=== PATIENT | male | born 1945 | race Two or more races ===

== ENCOUNTER → 2018-04-08 | Emergency (ER) | payer OTHER ==
[~2018-04-08] VITALS: Ht 185.4 cm; Wt 86.2 kg
[~2018-04-08] MED LIST: COZAAR50 MG; KEPPRA500 MG; NORVASC2.5 MG; TOPROL XL50 MG
== END | disposition designated cancer center or children's hospital (05) ==
LOC: ER 14:58
DX: G45.8 Other transient cerebral ischemic attacks and related syndromes (principal); I10 Essential (primary) hypertension

== ENCOUNTER 2019-04-21 13:20 | Outpatient (CLI) | payer OTHER | END 2019-04-21 13:31 | disposition home or self-care (01) | LOC: RAD 13:20 | DX: S62.521A Displaced fracture of distal phalanx of right thumb, initial encounter for closed fracture (principal) ==

== ENCOUNTER → 2021-07-31 12:30 | Outpatient (CLI) | payer OTHER | END | disposition home or self-care (01) | LOC: LAB 12:30 | PROVIDERS: ATTEND Radiology Diagnostic Radiology | DX: K74.60 Unspecified cirrhosis of liver (principal) ==

== ENCOUNTER 2021-08-01 09:10 | Outpatient (CLI) | payer OTHER | END 2021-08-01 09:22 | disposition home or self-care (01) | LOC: TOM 09:10 | PROVIDERS: ATTEND Specialist | DX: C72.0 Malignant neoplasm of spinal cord (principal); K74.60 Unspecified cirrhosis of liver | CPT/HCPCS: 74177; Q9965 ==

== ENCOUNTER 2022-08-04 12:10 | Outpatient (CLI) | payer OTHER ==
[2022-08-04] MEDS ORDERED: XARELTO20 M1 PO (21:13)
== END 2022-08-04 12:17 | disposition home or self-care (01) ==
LOC: RAD 12:10
DX: R07.9 Chest pain, unspecified (principal); S83.91XA Sprain of unspecified site of right knee, initial encounter

== ENCOUNTER 2022-08-04 20:47 | Emergency (ER) | payer OTHER ==
[~2022-08-04] VITALS: Ht 185.4 cm; Wt 86.2 kg
[2022-08-04] MEDS ORDERED: XARELTO20 M1 PO (21:13)
== END 2022-08-05 01:20 | disposition home or self-care (01) ==
LOC: ER 20:47
DX: S27.898A Other injury of other specified intrathoracic organs, initial encounter (principal); S22.43XA Multiple fractures of ribs, bilateral, initial encounter for closed fracture; W18.39XA Other fall on same level, initial encounter; Y93.89 Activity, other specified; Y92.091 Bathroom in other non-institutional residence as the place of occurrence of the external cause; Y99.8 Other external cause status; M79.601 Pain in right arm

== ENCOUNTER 2022-08-05 10:24 | Outpatient (CLI) | payer OTHER ==
[~2022-08-05 10:24] MED LIST changes: +XARELTO20 M1 PO
== END 2022-08-05 10:26 | disposition home or self-care (01) ==
LOC: SONOGRAMA 10:24
DX: S40.021A Contusion of right upper arm, initial encounter (principal)

== ENCOUNTER 2022-10-21 11:04 | Outpatient (CLI) | payer OTHER | END 2022-10-21 11:08 | disposition home or self-care (01) | LOC: RAD 11:04 | PROVIDERS: ATTEND Pediatrics | DX: S62.657A Nondisplaced fracture of middle phalanx of left little finger, initial encounter for closed fracture (principal) ==

== ENCOUNTER 2023-11-15 09:48 | Outpatient (CLI) | payer OTHER | END 2023-11-15 09:57 | disposition home or self-care (01) | LOC: SONOGRAMA 09:48 | PROVIDERS: ATTEND Pediatrics | DX: R31.9 Hematuria, unspecified (principal); R10.13 Epigastric pain ==

== ENCOUNTER 2023-12-13 10:54 | Outpatient (CLI) | payer OTHER | END 2023-12-13 10:59 | disposition home or self-care (01) | LOC: RAD 10:54 | PROVIDERS: ATTEND Ophthalmology | DX: R07.89 Other chest pain (principal) ==

== ENCOUNTER 2024-02-07 11:38 | Outpatient (CLI) | payer OTHER | END 2024-02-07 11:45 | disposition home or self-care (01) | LOC: SONOGRAMA 11:38 | PROVIDERS: ATTEND Urology | DX: N40.0 Benign prostatic hyperplasia without lower urinary tract symptoms (principal) ==

== ENCOUNTER 2024-12-08 09:56 | Outpatient (CLI) | payer OTHER | END 2024-12-08 09:57 | disposition home or self-care (01) | LOC: NUCLEAR 09:56 | DX: I70.213 Atherosclerosis of native arteries of extremities with intermittent claudication, bilateral legs (principal) ==

== ENCOUNTER 2024-12-13 10:42 | Outpatient (CLI) | payer OTHER | END 2024-12-13 10:43 | disposition home or self-care (01) | LOC: NUCLEAR 10:42 | PROVIDERS: ATTEND Internal Medicine Cardiovascular Disease | DX: I87.2 Venous insufficiency (chronic) (peripheral) (principal); I48.20 Chronic atrial fibrillation, unspecified ==